=== PATIENT | female | born 1975 | race Caucasian/White ===

== ENCOUNTER 2016-09-09 20:10 | Emergency (ER) | payer OTHER ==
[~2016-09-09] VITALS: Ht 175.3 cm; Wt 90.7 kg
[~2016-09-09 20:10] MED LIST: AMOXICILLIN500 MG PO; FLEXERIL10 MG PO; IBUPROFEN800 M1 PO; LEVOTHYROXINE0.05 M1 PO; MOTRIN600 MG PO; MOTRIN800 MG PO; NATURAL IRON65 MG PO; NORCO 325 MG-51 TAB PO; OXYCODONE5 M1 PO; PANTOPRAZOLE SO40 MG PO; PAXIL20 MG PO; PERCOCET 325 MG1 TA2 PO; VICODIN 300 MG-1 TAB PO; VICODIN5-300 PO; WOMEN'S DAILY1 TAB PO; ZOFRAN 4 MG TABL4 MG PO
[2016-09-09 20:18] VITALS: BP 132/85
--- NOTE | 2016-09-09 20:50 | ED INFLUENZA/URI COMPLAINT ---
History of Present Illness General Chief Complaint: General Adult Stated Complaint: COUGH/VALENCIA/FEVER/WHOLE BODY PAIN Source: patient Exam Limitations: no limitations Vital Signs & Intake/Output Vital Signs & Intake/Output Vital Signs Date Time Temp Pulse Resp B/P Pulse O2 O2 Flow FiO2 Ox Delivery Rate 09/09 2017 97.1 70 18 132/85 98 Room Air Allergies Coded Allergies: MDX - Latex (LATEX) (RASH 09/18/14) MDX - Codeine (CODEINE) (STABBING PAIN 09/18/14) MDX - Morphine (MORPHINE) (STABBING PAIN 09/18/14) Reconcile Medications Albuterol Sulfate (Ventolin Hfa) 90 MCG HFA.AER.AD 2 PUF INH Q4-6 PRN PRN SHORTNESS OF BREATH Benzonatate (Tessalon Perle) 100 MG CAPSULE 1 CAP PO TID PRN COUGH FERROUS SULFATE (IRON) 325 MG (65 MG IRON) TABLET 1 TAB PO DAILY SUPPLEMENT ( Reported) Ibuprofen 800 MG TABLET 1 TAB PO TID PRN PAIN Methylprednisolone. (Medrol) 4 MG TAB.DS.PK 1 DP PO AD INFLAMMATION 6 on day 1 then reduce by one tablet daily until gone Mometasone Furoate (Nasonex) 50 MCG SPRAY.PUMP 2 SPRAY NASB DAILY CONGESTION MULTIVITS,CA,MINERALS/IRON/FA (Women's Daily Caplet) 27 MG IRON-400 MCG TABLET 1 TAB PO DAILY VITAMIN (Reported) Ondansetron (Zofran 4 MG Tablet) 4 MG TAB 1 TAB PO Q6HR PRN NAUSEA Oseltamivir Phosphate (Tamiflu) 75 MG CAPSULE 1 CAP PO BID INFLUENZA Pantoprazole Sodium 40 MG TABLET.DR 40 MG PO DAILY STOMACH (Reported) PAROXETINE HCL (Paxil) 20 MG TABLET 1 TAB PO DAILY MENTAL HEALTH (Reported) Robitussin AC (Guaifenesin-Codeine Syrup) 200 MG-20 MG/10 ML LIQUID 10 ML PO TID PRN COUGH Triage Note: PT TO TRIAGE WITH DRY COUGH, SORE THROAT, BODYACHE, CONGESTION, SINUS PRESSURE x1DAY. PT AFEBRILE IN TRIAGE. VSS. Triage Nurses Notes Reviewed? yes Onset: Abrupt Duration: constant Timing: single episode today Severity: severe Severity Numbers: 7 No Modifying Factors: none : No Patient currently breastfeeds: No HPI: Patient is a 41-year-old female who presents emergency with a 24-hour history of acute onset of persistent headaches, nasal congestion, sinus pressure, nonproductive cough, generalized weakness fatigue and body aches back pain joint pain. Patient took [id number] Tylenol with minimal relief of symptoms. Patient can tolerate by mouth denies any abdominal pain nausea vomiting. 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 (JARETT CLAY) Past History Travel History Traveled to [place] past 21 day No Medical History Any Pertinent Medical History? see below for history Neurological: NONE EENT: NONE Cardiovascular: FORMER HTN Respiratory: NONE Gastrointestinal: GERD, CHOLECYSTECTOMY Hepatic: NONE Renal: NONE Musculoskeletal: NONE Psychiatric: NONE Endocrine: FORMER DIABETES Blood Disorders: NONE Cancer(s): NONE S[employer]IOR [employer]IST/Reproductive: NONE History of MRSA: No History of VRE: No History of CDIFF: No Tetanus Vaccine: 06/06/13 Surgical History Surgical History: non-contributory Psychosocial History Who do you live with Spouse Services at Home None What is your primary language Arabic Tobacco Use: Quit >30 days ago Family History Family History, If Any: FATHER FH: CAD (coronary artery disease) MOTHER FH: diabetes mellitus grandmother FHx: lung cancer grandfather FH: colon cancer aunt FH: breast cancer Hx Contributory? No (JARETT CLAY) Review of Systems Review of Systems Constitutional: Reports: see HPI, chills. EENTM: Reports: see HPI, nasal congestion. Respiratory: Reports: see HPI, cough. Cardiovascular: Denies: chest pain. GI: Denies: abdominal pain. Genitourinary: Reports: no symptoms. Musculoskeletal: Reports: see HPI, back pain, muscle pain, muscle stiffness. Skin: Reports: no symptoms. Neurological/Psychological: Reports: see HPI, headache. Hematologic/Endocrine: Reports: no symptoms. Immunologic/Allergic: Reports: no symptoms. All Other Systems: Reviewed and Negative (JARETT CLAY) Physical Exam Physical Exam General Appearance: mild distress Ears, Nose, Throat: moist mucous membrane, hearing grossly normal, Tympanic normal, pharynx normal, nasal congestion, nasal drainage Comments: HEENT: Normal EENT exam, extraocular motion intact, no nystagmus. Pupils equally round and reactive to light and accommodation. Nose is atraumatic. External auditory canal and Tympanic membranes clear. Pharynx normal. No swelling or edema. Nasal congestion noted Neck: Supple, no lymphadenopathy, normal range of motion without pain or tenderness Back: Nontender, no CVA tenderness. Cardiovascular: Regular rate and rhythms no murmurs rubs or gallops, normal JVP Respiratory: Chest nontender. No respiratory distress.breath sounds clear to auscultation bilaterally Abdomen: Soft, nontender nondistended, no appreciable organomegaly. Normal bowel sounds. No ascites Extremity: No edema, no calf tenderness to palpation, normal and equal pulses. Neuro: Alert oriented x3, motor sensory normal, Skin: No appreciable rash on exposed skin, skin is warm and dry. Psych: Mood and affect is normal, memory and judgment is normal. Core Measures Severe Sepsis Present: No Septic Shock Present: No (JARETT CLAY) Progress Differential Diagnosis: influenza, meningitis, neutropenia, otitis, pneumonia, pharyngitis, sinusitis Plan of Care: Orders Procedure Date/time Status RAPID VIRAL INFLUENZA A 09/09 2039 Complete Microbiology 09/09 2049 NASOPHARYN: Influenza Virus A & B Rapid Smear - COMP INFLUENZA TYPE A Discussed positive results of influenza with patient Patient will be treated symptomatically Patient's family members were also prophylactically given prescriptions of Tamiflu Upon discharge patient looks well no apparent distress and will comply with discharge instructions and had no questions Patient on discharge was afebrile nontoxic-appearing (JARETT CLAY) Initial ED EKG: none (JARETT CLAY) Departure Departure Disposition: HOME OR SELF CARE Condition: Stable Clinical Impression Primary Impression: Influenza Referrals: PAVEL ORTEGA APRN (PCP/Family) Additional Instructions: As discussed begin drinking plenty of water for hydration. Begin over-the- counter Mucinex for chest congestion and Sudafed for nasal congestion Begin the prescription of Tessalon Perles and Robitussin with codeine for cough. Begin the prescription Nasonex for congestion. Begin the counter Motrin for pain and body aches and Tylenol for fevers. If symptoms worsen return to emergency room. Prescriptions are waiting at [facility] pharmacy. If no better in 2 days follow-up with your primary care doctor Begin the prescription of Medrol Dosepak for inflammation, Ventolin INHALER for shortness of breath and Tamiflu for your symptoms. Departure Forms: Customer Survey General Discharge Information Prescriptions: Current Visit Scripts Benzonatate (Tessalon Perle) 1 CAP PO TID PRN COUGH #21 CAP Robitussin AC (Guaifenesin-Codeine Syrup) 10 ML PO TID PRN COUGH #120 ML Mometasone Furoate (Nasonex) 2 SPRAY NASB DAILY #1 INHAL Oseltamivir Phosphate (Tamiflu) 1 CAP PO BID #10 CAP Methylprednisolone. (Medrol) 1 DP PO AD #1 DP 6 on day 1 then reduce by one tablet daily until gone Albuterol Sulfate (Ventolin Hfa) 2 PUF INH Q4-6 PRN PRN SHORTNESS OF BREATH #1 INHAL (JARETT CLAY) PA/TAPE MACHINE TAILER Co-Sign Statement Statement: ED Attending supervision documentation- [] I saw and evaluated the patient. I have also reviewed all the pertinent lab results and diagnostic results. I agree with the findings and the plan of care as documented in the PA's/TAPE MACHINE TAILER's documentation. [X] I have reviewed the ED Record and agree with the PA's/TAPE MACHINE TAILER's documentation. [] Additions or exceptions (if any) to the PAs/TAPE MACHINE TAILER's note and plan are summarized below: [] (JOSEPH LOAIZA,ROMAINE)
[2016-09-09] MEDS ORDERED: TESSALON PERLE100 M1 PO (21:12)
[2016-09-09] MEDS ORDERED: GUAIFENESIN-COD10 ML PO (21:12)
[2016-09-09] MEDS ORDERED: NASONEX17 GM NASB (21:12)
[2016-09-09] MEDS ORDERED: MEDROL4 M2 PO (21:25)
[2016-09-09] MEDS ORDERED: TAMIFLU75 M1 PO (21:25)
[2016-09-09] MEDS ORDERED: VENTOLIN HFA18 GM INH (21:25)
== END 2016-09-09 21:39 ==
LOC: ERH 20:10
DX: J11.1 Influenza due to unidentified influenza virus with other respiratory manifestations (principal); Z87.891 Personal history of nicotine dependence
CPT/HCPCS: 87804; 87804-59